=== PATIENT | female | born 1945 | race Caucasian/White ===

== ENCOUNTER 2021-08-04 10:31 | Inpatient (IN) | payer MEDICARE, BC ==
[2021-08-04 11:29] LABS: CORONAVIRUS COVID-19 NAA NEGATIVE (NEGATIVE); INFLUENZA A NAA NEGATIVE (NEGATIVE); INFLUENZA B NAA NEGATIVE (NEGATIVE)
[2021-08-04] MEDS ORDERED: Heparin Sodium 5,000 Units/ML Vial IVPUSH ONE (11:34)
[2021-08-04] MEDS ORDERED: Heparin Sodium/0.45% NaCl 500 ML IV SCH (11:45)
[2021-08-04] MEDS: Rosuvastatin 10 MG Tab PO SCH (20:05)
[2021-08-04] MEDS ORDERED: Non-Formulary Medication 1 Each (Lisinopril 20 MG Tablet) PO SCH (21:00)
[2021-08-05] MEDS: Heparin Sodium/0.45% NaCl 500 ML IV SCH (00:01)
[2021-08-05 06:16] LABS: BLOOD UREA NITROGEN,BUN 13 mg/dL (7.0-18.0); CHLORIDE,CL 105 mmol/L (98-107); GLUCOSE RANDOM 108 mg/dL (74-106); POTASSIUM,K 3.4 mmol/L (3.5-5.1); SODIUM,NA 140 mmol/L (136-145)
[2021-08-05] MEDS: Lisinopril 10 MG Tab PO SCH ×2 (08:35→20:39)
[2021-08-05] MEDS: Hydrochlorothiazide 25 MG Tab PO SCH (08:45)
[2021-08-05] MEDS ORDERED: SOLIFENACIN 5 MG PO SCH (09:00)
[2021-08-05] MEDS ORDERED: Potassium Chloride 20 MEQ Tab.ER PO ONE (09:05)
[2021-08-05] MEDS: Rosuvastatin 10 MG Tab PO SCH (20:39)
[2021-08-06] MEDS: Heparin Sodium 5,000 Units/ML Vial IVPUSH PRN ×2 (01:24→07:12)
[2021-08-06] MEDS: Heparin Sodium/0.45% NaCl 500 ML IV SCH (05:29)
[2021-08-06 06:19] LABS: BLOOD UREA NITROGEN,BUN 12 mg/dL (7.0-18.0); CARBON DIOXIDE,CO2 25.5 mmol/L (21.0-32.0); CHLORIDE,CL 104 mmol/L (98-107); GLUCOSE RANDOM 104 mg/dL (74-106); POTASSIUM,K 3.6 mmol/L (3.5-5.1); SODIUM,NA 140 mmol/L (136-145)
[2021-08-06] MEDS ORDERED: Heparin Sodium 5,000 Units/ML Vial ONE (07:08)
[2021-08-06] MEDS ORDERED: Benzonatate 100 MG Cap PO PRN (09:10)
[2021-08-06] MEDS: Lisinopril 10 MG Tab PO SCH ×2 (09:23→21:30)
[2021-08-06] MEDS: Hydrochlorothiazide 25 MG Tab PO SCH (09:24)
[2021-08-06] MEDS: Rosuvastatin 10 MG Tab PO SCH (21:29)
[2021-08-07] MEDS: Heparin Sodium/0.45% NaCl 500 ML IV SCH (04:35)
[2021-08-07 07:34] LABS: BLOOD UREA NITROGEN,BUN 15 mg/dL (7.0-18.0); CARBON DIOXIDE,CO2 26.2 mmol/L (21.0-32.0); CHLORIDE,CL 103 mmol/L (98-107); GLUCOSE RANDOM 100 mg/dL (74-106); POTASSIUM,K 3.8 mmol/L (3.5-5.1); SODIUM,NA 139 mmol/L (136-145)
[2021-08-07] MEDS: Lisinopril 10 MG Tab PO SCH (09:06)
[2021-08-07] MEDS: Hydrochlorothiazide 25 MG Tab PO SCH (09:06)
[2021-08-07] MEDS ORDERED: Rivaroxaban 15 MG Tab PO SCH (10:15)
== END 2021-08-07 15:10 | disposition home or self-care (01) | DRG 176 ==
LOC: MW.ED 10:31 → MW.MS 12:41 → OBSVTOIN 12:42
PROVIDERS: ADMIT Internal Medicine; ATTEND Internal Medicine
DX: I26.99 Other pulmonary embolism without acute cor pulmonale (principal); Z86.711 Personal history of pulmonary embolism; Z79.82 Long term (current) use of aspirin; Z96.659 Presence of unspecified artificial knee joint; Z98.890 Other specified postprocedural states; Z79.899 Other long term (current) drug therapy; Z85.3 Personal history of malignant neoplasm of breast; Z98.49 Cataract extraction status, unspecified eye; Z90.710 Acquired absence of both cervix and uterus; Z20.822 Contact with and (suspected) exposure to COVID-19; Z79.01 Long term (current) use of anticoagulants
CPT/HCPCS: 0240U; 36415; 71275; 80048; 83880; 84484; 85025; 85730; 93005; 93306; 96365; 96366; 96376; 99285; 93010; A9270-GY; J1644

== ENCOUNTER 2022-12-22 11:25 | Emergency (ER) | payer MEDICARE, BC ==
[2022-12-22] MEDS ORDERED: Oxymetazoline 0.05% Nasal Spray 30 ML Bottle NAS STA (11:55)
== END 2022-12-22 12:54 | disposition home or self-care (01) ==
LOC: MW.ED 11:25
DX: R04.0 Epistaxis (principal); I10 Essential (primary) hypertension; E78.00 Pure hypercholesterolemia, unspecified; E66.9 Obesity, unspecified; Z68.41 Body mass index [BMI] 40.0-44.9, adult; Z79.899 Other long term (current) drug therapy; Z79.01 Long term (current) use of anticoagulants
CPT/HCPCS: 30901; 99283; A9270

== ENCOUNTER 2022-12-22 15:04 | Emergency (ER) | payer MEDICARE, BC ==
[2022-12-22] MEDS ORDERED: Tranexamic Acid 1,000 MG in Sodium Chloride 0.9% 100 ML IV STA (15:17)
== END 2022-12-22 17:16 | disposition home or self-care (01) ==
LOC: MW.ED 15:04
DX: R04.0 Epistaxis (principal); I10 Essential (primary) hypertension; E78.5 Hyperlipidemia, unspecified; E78.00 Pure hypercholesterolemia, unspecified; E66.9 Obesity, unspecified; Z68.41 Body mass index [BMI] 40.0-44.9, adult; Z79.01 Long term (current) use of anticoagulants; Z79.899 Other long term (current) drug therapy
CPT/HCPCS: 30901; 99283